=== PATIENT | female | born 1980 | race African-American/Black ===

== ENCOUNTER 2016-08-21 21:42 | Emergency (ER) | payer SELFPAY ==
--- NOTE | 2016-08-21 22:55 | ER Document Report ---
ED Medical Screen (RME) - General Chief Complaint: Leg Pain Stated Complaint: RIGHT LEG Mode of Arrival: Wheelchair Information source: Patient Notes: She presents today with complaints of right leg pain. Reports it started on August 09 and pains as being consistent and today she fell down 3 times. On Friday the she picked up a box and heard a pop.. Reports numbness from knee to foot. TRAVEL OUTSIDE OF THE [place] IN LAST 30 DAYS: No - Related Data Allergies/Adverse Reactions: azithromycin [From Zithromax] Allergy (Verified 08/21/16 22:08) Past Medical History - Social History Chew tobacco use (# tins/day): No Frequency of alcohol use: None Drug Abuse: None Renal/ Medical History: Denies: Hx Peritoneal Dialysis Physical Exam - Vital signs Vitals: Temp Pulse Resp BP Pulse Ox 98.1 F 112 H 20 156/98 H 99 08/21/16 21:47 08/21/16 21:47 08/21/16 21:47 08/21/16 21:47 08/21/16 21:47 Course - Vital Signs Vital signs: Temp Pulse Resp BP Pulse Ox 98.1 F 112 H 20 156/98 H 99 08/21/16 21:47 08/21/16 21:47 08/21/16 21:47 08/21/16 21:47 08/21/16 21:47
[2016-08-22] MEDS ORDERED: DEXAMETHASONE SOD PHOS INJ 10 MG/1 ML VIAL IM ONE (01:24)
[2016-08-22] MEDS ORDERED: KETOROLAC TROMETHAMINE 60 MG/2 ML SDV IM ONE (01:24)
--- NOTE | 2016-08-22 02:42 | ER Document Report ---
ED General - General Chief Complaint: Leg Pain Stated Complaint: RIGHT LEG Mode of Arrival: Wheelchair Notes: Patient is a 36-year-old female who presents with complaint of pain in the right lower back to raise into right leg. She says the pain is actually mostly in the right gluteal region and radiates down the back of her right leg and into her foot. Some tickling Sensation and her foot. The pain first started 3 days ago when she bent over to crab picker an heavy object. She says when she picked up the object she felt a pop in her right hip region and then the pain started going down her leg. Patient denies any loss of bowel control. No urinary retention. She says her leg has given out on her twice. No fevers. No vomiting. No diarrhea. No other complaints at this time. TRAVEL OUTSIDE OF THE [place] IN LAST 30 DAYS: No - Related Data Allergies/Adverse Reactions: azithromycin [From Zithromax] Allergy (Verified 08/22/16 02:31) Past Medical History - General Information source: Patient - Social History Smoking Status: Never Smoker Chew tobacco use (# tins/day): No Frequency of alcohol use: None Drug Abuse: None Family History: Reviewed & Not Pertinent Patient has suicidal ideation: No Patient has homicidal ideation: No Renal/ Medical History: Denies: Hx Peritoneal Dialysis Past Surgical History: Reports: Hx Section - x1, Hx Tonsillectomy - Adenoids - Immunizations Hx Diphtheria, Pertussis, Tetanus Vaccination: Yes Review of Systems - Review of Systems Notes: My Normal Review Basic REVIEW OF SYSTEMS: CONSTITUTIONAL : Denies fever, chills, or sweats. Denies recent illness. EENT: Denies eye, ear, throat, or mouth pain or symptoms. Denies nasal or sinus congestion. CARDIOVASCULAR: Denies chest pain. RESPIRATORY: Denies cough, cold, or chest congestion. Denies shortness of breath, difficulty breathing, or wheezing. GASTROINTESTINAL: Denies abdominal pain. Denies nausea, vomiting, or diarrhea. Denies constipation. Last BM: MUSCULOSKELETAL: Pain over her right low back and right gluteal region. SKIN: Denies rash or skin lesions. NEUROLOGICAL: Denies altered mental status or loss of consciousness. Denies headache. Denies weakness or paralysis or loss of use of either side. Denies problems with gait or speech. Denies sensory or motor loss. ALL OTHER SYSTEMS REVIEWED AND NEGATIVE. Physical Exam - Vital signs Vitals: Temp Pulse Resp BP Pulse Ox 98.1 F 112 H 20 156/98 H 99 08/21/16 21:47 08/21/16 21:47 08/21/16 21:47 08/21/16 21:47 08/21/16 21:47 - Notes Notes: General Appearance: Well nourished, alert, cooperative, no acute distress, moderate obvious discomfort. Vitals: reviewed, See vital signs table. Head: no swelling or tenderness to the head Eyes: PERRL, EOMI, Conjuctiva clear Back: Patient does not have any midline tenderness to palpation of her spine. No step-offs or deformities. The main location of the patient's tenderness over the right. Performance muscle over the right gluteal region. Extremities: strength 5/5 in all extremities, good pulses in all extremities, no swelling or tenderness in the extremities, no edema. Skin: warm, dry, appropriate color, no rash Neuro: speech clear, oriented x 3, normal affect, responds appropriately to questions. Distal sensation intact exception of slight diminishment in the right leg. Patient has good plantar and dorsiflexion against resistance. Achilles reflexes are intact. Course - Vital Signs Vital signs: Temp Pulse Resp BP Pulse Ox 98.0 F 83 16 129/72 H 97 08/22/16 02:59 08/22/16 02:59 08/22/16 02:59 08/22/16 02:59 08/22/16 02:59 - Transfer of Care Notes: 08/22/16 08:05 Patient has symptoms very consistent with site nerve impingement. I did give her shot of Decadron as well as Toradol. She said this did help her symptoms some. I'll discharge her home with pain medicine. I encourage her follow closely with primary care doctor for reevaluation and possible MRI if her pain continues despite one week of treatment. Encourage return to ER immediately if she has any worsening of her pain, loss of bowel control, urinary retention, leg weakness, or she feels unwell. Patient agrees with plan and will be discharged home. Patient currently has no signs of cauda equina syndrome or central cord impingement. Dictation of this chart was performed using voice recognition software; therefore, there may be some unintended grammatical errors. Discharge - Discharge Clinical Impression: Back pain Qualifiers: Back pain location: low back pain Chronicity: acute Back pain laterality: right Sciatica presence: with sciatica Sciatica laterality: sciatica of right side Qualified Code(s): M54.41 - Lumbago with sciatica, right side Condition: Good Disposition: HOME, SELF-CARE Additional Instructions: LOW BACK PAIN: Three out of every four people will have an episode of disabling back pain during their lifetime. Most commonly the pain is due to straining of the muscles and ligaments in the low back. Usual treatment includes: (1) Rest on a firm surface. Avoid lying on your stomach. (2) Ice pack the painful area. After a few days, gentle heat may be used intermittently to relax the area, or ice packs can be continued. (3) Medication may be needed -- muscle relaxers and antiinflammatory medicines are commonly used. (4) As the back improves, exercises are prescribed to strengthen the back and abdominal muscles. Your doctor will advise you on the proper care for your back at each stage in your recovery. You may be better in a few days -- or healing may take several weeks. If new symptoms of a "herniated disc" (radiation of pain, numbness, or tingling down the back of the leg or weakness in the leg) occur, you should be re-examined. Further testing may be necessary. ORAL NARCOTIC MEDICATION: You have been given a prescription for pain control. This medication is a narcotic. It's best taken with food, as nausea can result if taken on an empty stomach. Don't operate machinery or drive within six hours of taking this medication. Do not combine this medicine with alcohol, or with any medication which can cause sedation (such as cold tablets or sleeping pills) unless you get permission from the physician. Narcotics tend to cause constipation. If possible, drink plenty of fluids and eat a diet high in fiber and fruits. Please be aware that prescription narcotics also have the potential for abuse. People become addicted to these medications because of the general sense of wellbeing that they induce. This feeling along with a significant reduction in tension, anxiety, and aggression provides a stimulating seductive quality to these drugs. Once your pain is under control, we encourage you to discard your unused narcotics. MUSCLE RELAXERS: Muscle relaxing medications are usually prescribed for acute muscle spasm or injury to the neck and back. They are often combined with antiinflammatory pain medication for increased relief. You may stop the muscle relaxer when the pain and stiffness have improved. Start the medication again if spasms recur. Muscle relaxers may cause drowsiness, especially with the first dose. Do not operate machinery or drive while under the effects of the medication. Most muscle relaxers last up to 24 hours. Do not combine the medication with alcohol. ICE PACKS: Apply ice packs frequently against the painful area. Many different schedules are recommended, such as "20 minutes on, 20 minutes off" or "one hour ice, two hours rest." If you need to work, you may need to go longer between ice treatments. You should plan to have the area ice packed AT LEAST one fourth of the time. The ice should be applied over the wrap, tape, or splint, or over a layer of cloth -- not directly against the skin. Some ice bags have a built-in cloth and can be put directly on the skin. WARM PACKS: After approximately two days, apply gentle heat (such as a heating pad or hot water bottle) for about 20 to 30 minutes about every two hours -- at least four times daily. Warmth and elevation will help you make a more rapid recovery , and will ease the pain considerably. Do not use HOT heat, and never apply heat for longer than 30 minutes. The continuous heat can invisibly damage skin and muscles -- even when no burn is seen on the surface. Damaged muscles can make you MORE sore. FOLLOW-UP CARE: If you have been referred to a physician for follow-up care, call the physician s office for an appointment as you were instructed or within the next two days. If you experience worsening or a significant change in your symptoms, notify the physician immediately or return to the Emergency Department at any time for re-evaluation. Please return to the ER immediately if you develop worsening pain, loss of bowel control, inability to urinate, leg weakness, or feel unwell. Please follow-up with the primary care physician for reevaluation and possible referral to physical therapy for pain continues. If your pain continues to be an issue you may eventually need an MRI. Forms: Return to Work Referrals: JEMMA MUÑOZ MD [ACTIVE STAFF] - Follow up in 3-5 days
[2016-08-22] MEDS ORDERED: HYDROCODONE/ACETAMINOPHEN 5-325 MG 6 TAB/DSPK PO PRN (02:44)
[2016-08-22 03:09] VITALS: BP 129/72
== END 2016-08-22 03:00 | disposition home or self-care (01) ==
LOC: ER 21:42
DX: M54.41 Lumbago with sciatica, right side (principal); X50.0XXA Overexertion from strenuous movement or load, initial encounter; Z88.1 Allergy status to other antibiotic agents
CPT/HCPCS: 99283; 96372; 96374; J1885; J1100